=== PATIENT | male | born 1980 | race Two or more races ===

== ENCOUNTER 2021-11-15 19:33 | Emergency (ER) | payer MEDICAID, OTHER ==
[~2021-11-15] VITALS: Ht 162.6 cm; Wt 72.7 kg
[2021-11-15 19:54] VITALS: BP 127/91
== END 2021-11-16 01:43 | disposition left against medical advice (07) ==
LOC: EDBD 19:33 → ER 19:33
DX: F10.129 Alcohol abuse with intoxication, unspecified (principal); Z53.21 Procedure and treatment not carried out due to patient leaving prior to being seen by health care provider; Y90.9 Presence of alcohol in blood, level not specified